=== PATIENT | female | born 1965 | race Caucasian/White ===

== ENCOUNTER 2016-12-21 01:38 | Emergency (ER) | payer OTHER ==
[~2016-12-21] VITALS: Ht 167.6 cm; Wt 78.9 kg
[~2016-12-21 01:38] MED LIST: AMLODIPINE5 M1 PO; COLACE250 MG PO; COZAAR50 MG PO; FERROUS SULFAT325 MG PO; HYDROCHLOROTH12.5 MG PO; ORETIC25 MG PO; OYSTER SHELL CA1 T20 PO
[2016-12-21 01:55] VITALS: BP 160/94
--- NOTE | 2016-12-21 02:28 | NUR ---
TO ER BED 4
--- NOTE | 2016-12-21 02:30 | NUR ---
PATIENT PRESENTS TO ED WITH SORE THROAT AND NECK X 3 DAYS . PT DENIES N/V/D; SKIN IS PINK/WARM/DRY; AAOX4 WITH EVEN AND STEADY GAIT; LUNGS CLEAR BL; HR EVEN AND REGULAR; PT DENIES ANY FEVER, CP OR COUGH AT THIS TIME; PATIENT STATES PAIN OF 5/10 AT THIS TIME; VSS; PATIENT POSITIONED FOR COMFORT; HOB ELEVATED; BEDRAILS UP X2; BED DOWN. ER MD MADE AWARE OF PT STATUS.
[2016-12-21] MEDS ORDERED: KETOROLAC 60 MG/2 ML VIAL IM ONE (03:15)
--- NOTE | 2016-12-21 03:50 | NUR ---
Patient discharged with v/s stable. Written and verbal after care instructions given and explained. Patient alert, oriented and verbalized understanding of instructions. Ambulatory with steady gait. All questions addressed prior to discharge. ID band removed. Patient advised to follow up with PMD. Rx of ZITHROMYCIN AND PROMETHAZINE given. Patient educated on indication of medication including possible reaction and side effects. Opportunity to ask questions provided and answered.
[2016-12-21 03:51] VITALS: BP 166/85
== END 2016-12-21 03:51 | disposition home or self-care (01) ==
LOC: MED 01:38
DX: J02.8 Acute pharyngitis due to other specified organisms (principal); B96.89 Other specified bacterial agents as the cause of diseases classified elsewhere; E11.9 Type 2 diabetes mellitus without complications; I10 Essential (primary) hypertension
CPT/HCPCS: 72040; 73030; 82948; 93005; 96372; 99284; J1885

== ENCOUNTER 2016-12-22 11:17 | Emergency (ER) | payer OTHER ==
[~2016-12-22] VITALS: Ht 160 cm; Wt 76.2 kg
[2016-12-22 11:43] VITALS: BP 151/88
--- NOTE | 2016-12-22 12:16 | NUR ---
PREET TAKENT TO BED 3 AT THIS TIME.
--- NOTE | 2016-12-22 12:18 | NUR ---
51F BIB FAMILY C/O NUMBNESS TO RT SHOULDER, RADIATES TO RT ARM AND RT SIDE OF BODY X 1 WEEK; PT STATES WAS IN [facility] ER LAST NIGHT AND TOLD TO COME BACK FOR RECHECK FOR PAIN TO RT SHOULDER; PT DENIES PAIN AT THIS TIME, BUT STATES FEELS "NUMB" ON RT SIDE; RT RADIAL PULSE PALPABLE, RT CAP REFILL < 2 SECONDS, NO LOSS OF SENSATION OR ROM TO RT UPPER/LOWER EXTREMITIES AT THIS TIME; PT A&OX4, PERRLA, BL LUNG SOUNDS CLEAR, RR EVEN/UNLABORED, SKIN IS WARM/DRY/INTACT AT THIS TIME; PT NOTED WITH HEALED SCAR TO LEFT THIGH FROM SURGERY; DENIES N/V/D AT THIS TIME; PT RESTING IN BED W/ HOB ELEVATED AND IN LOWEST POSITION; POSITIONED FOR COMFORT; ER MD MADE AWARE OF STATUS. WILL CONTINUE TO MONITOR.
--- NOTE | 2016-12-22 12:18 | NUR ---
PT REFUSES SUPPLEMENTAL O2 ORDERED; STATES BREATHING FINE; DENIES PAIN OR ACUTE DISTRESS AT THIS TIME; BL LUNG SOUNDS CLEAR, RR EVEN/UNLABORED, O2 SAT 100 % ON ROOM AIR AT THIS TIME.
--- NOTE | 2016-12-22 13:40 | NUR ---
Patient appears to be resting comfortably in bed. Respirations even and unlabored. DENIES ANY ACUTE DISTRESS AT THIS TIME; WILL CONTINUE TO MONITOR.
[2016-12-22] MEDS ORDERED: ASPIRIN 325 MG TAB PO ONE (13:55)
--- NOTE | 2016-12-22 13:58 | NUR ---
REPORT GIVEN TO NOE, MEDICAL STUDENT AT [facility].
[2016-12-22 14:08] VITALS: BP 120/88
--- NOTE | 2016-12-22 14:08 | NUR ---
Patient to be transferred to [facility]. Is being transferred due to EQUIPMENT OR SERVICES NOT AVAILABLE AT THIS FACILITY. Receiving facility has accepting physician and available space. ER physician has signed transfer form. Patient or responsible green party has agreed to transfer and signed form. Patient belongings inventoried and will be sent with patient. Copy of nursing notes, lab reports, EKG, Physicians Orders and X-rays to be sent with patient. Report called to NOE MEDICAL STUDENT at receiving facility. PT BEING TRANSFERRED TO [facility] VIA [facility] ACCOMPANIED BY [facility] AT THIS TIME.
== END 2016-12-22 14:08 | disposition short-term general hospital (02) ==
LOC: MED 11:17
DX: G45.9 Transient cerebral ischemic attack, unspecified (principal); E11.9 Type 2 diabetes mellitus without complications; I10 Essential (primary) hypertension; E78.00 Pure hypercholesterolemia, unspecified; D64.9 Anemia, unspecified

== ENCOUNTER 2018-11-04 16:38 | Emergency (ER) | payer OTHER ==
[~2018-11-04] VITALS: Ht 157.5 cm; Wt 77.1 kg
[~2018-11-04 16:38] MED LIST changes: +AMLO5TAB8 PO; -AMLODIPINE5 M1 PO; +CALC-106 PO; +COL250 PO; -COLACE250 MG PO; +COZ50 PO; -COZAAR50 MG PO; +FERR325E14 PO; -FERROUS SULFAT325 MG PO; +HYDR12.5 PO; -HYDROCHLOROTH12.5 MG PO; -ORETIC25 MG PO; -OYSTER SHELL CA1 T20 PO
[2018-11-04 16:49] VITALS: BP 126/66
--- NOTE | 2018-11-04 16:53 | NUR ---
PATIENT TRIAGED AND AMBULATED TO ER LOBBY, URINE CUP GIVEN TO PATIENT
--- NOTE | 2018-11-04 17:12 | NUR ---
PT AMBULATED TO BED 10.
--- NOTE | 2018-11-04 17:15 | NUR ---
PT C/O R FACIAL NUMBNESS AND R TEMPORAL REGION HEADACHE 5/10 THROBBING X 1 WEEK AND INSOMNIA X 1 WEEK. SMILES SYMMETRICAL, NO FACIAL DROOP NOTED, NO MOTOR DEFICITS ON BILAT UPPER/LOWER EXTREMITIES NOTED. DENIES CP/SOB/NVD. . DENIES N/V/D; SKIN IS PINK/WARM/DRY; AAOX4 WITH EVEN AND STEADY GAIT; LUNGS CLEAR BL; HR EVEN AND REGULAR; PT DENIES ANY FEVER, CP, SOB, OR COUGH AT THIS TIME; PATIENT STATES PAIN OF 5/10 AT THIS TIME; VSS; PATIENT POSITIONED FOR COMFORT; HOB ELEVATED; BEDRAILS UP X2; BED DOWN. ER MD MADE AWARE OF PT STATUS.
--- NOTE | 2018-11-04 19:10 | NUR ---
REPORT GIVEN TO WINNIE GRIJALVA
--- NOTE | 2018-11-04 21:00 | NUR ---
PT REFUSED CT. DR PITT NOTIFIED.
[2018-11-04 21:32] LABS: BASOPHILS % (AUTO) 0.4 % (0.0-2.0); EOSINOPHILS # (AUTO) 0.2 K/uL (0-0.4); EOSINOPHILS % (AUTO) 2.5 % (0.0-4.0); HEMATOCRIT 37.9 % (36-48); HEMOGLOBIN 11.7 g/dL (12.0-16.0); LYMPHOCYTES # (AUTO) 3.2 K/uL (2.5-16.5); LYMPHOCYTES % (AUTO) 39.7 % (20.5-51.1); MEAN CORPUSCULAR HEMOGLOBIN 23 pg (27-31); MEAN CORPUSCULAR HGB CONC 31 g/dL (33-37); MEAN CORPUSCULAR VOLUME 75.3 fL (80-94); MONOCYTES # (AUTO) 0.7 K/uL (0.8-1.0); MONOCYTES % (AUTO) 8.4 % (1.7-9.3); NEUTROPHILS # (AUTO) 3.9 K/uL (1.8-7.7); PLATELET COUNT (AUTO) 332 K/uL (140-450); RED BLOOD CELL COUNT(AUTO) 5.03 MIL/uL (4.20-5.40)
[2018-11-04 21:42] LABS: APPEARANCE,URINE CLEAR (CLEAR); BILIRUBIN,URINE NEGATIVE (NEGATIVE); BLOOD, URINE NEGATIVE (NEGATIVE); COLOR,URINE ORANGE (YELLOW); LEUKOCYTE ESTERASE ,URINE TRACE (NEGATIVE); NITRITE, URINE NEGATIVE (NEGATIVE); UGLUCOSE 3+ (NEGATIVE)
[2018-11-04 21:50] LABS: RBC,URINE NONE SEEN /HPF (0-5)
[2018-11-04 21:54] LABS: ANION GAP 12.7 (8-16); POTASSIUM 3.7 mmol/L (3.5-5.1)
[2018-11-04 22:00] LABS: ALBUMIN 4.1 g/dL (3.4-5.0); TOTAL BILIRUBIN 0.3 mg/dL (0.0-1.0)
--- NOTE | 2018-11-04 22:08 | NUR ---
PATIENT DISCHARGED BY DR PITT, PATIENT RECEIVED RX FOR MACROBID, PATIENT EDUCATED ON MEDICATIONS AND ALL QUESTIONS ANSWERED. WAS TOLD TO FOLLOW UP WITH PRIMARY PHYSICIAN BECAUSE LABS SHOWED GLUCOSE IN THE URINE. A COPY OF THE LABS WERE GIVEN TO THE PATIENT. VSS.
[2018-11-04 22:15] VITALS: BP 107/87
--- NOTE | 2018-11-07 14:54 | NUR ---
LAB REPORTED URINE E.COLI ESBL; COLLECTED 11/04/2018 TREATED WITH MACROBID---- REVIEWED CHART , AGREED WITH TREATMENT WITH MACROBID
== END 2018-11-04 22:08 | disposition home or self-care (01) ==
LOC: MED 16:38
DX: N39.0 Urinary tract infection, site not specified (principal); E11.9 Type 2 diabetes mellitus without complications; I10 Essential (primary) hypertension; Z79.899 Other long term (current) drug therapy
CPT/HCPCS: 36415; 80053; 81001; 81025; 85025; 87086; 87186; 99283

== ENCOUNTER 2019-06-09 12:11 | Emergency (ER) | payer OTHER ==
[~2019-06-09] VITALS: Ht 154.9 cm; Wt 69.4 kg
[~2019-06-09 12:11] MED LIST changes: -COZ50 PO; +LOSA50TA57 PO
[2019-06-09 12:17] VITALS: BP 168/77
--- NOTE | 2019-06-09 12:44 | NUR ---
AMBULATED TO ER BED 7
--- NOTE | 2019-06-09 13:09 | NUR ---
53/F TO ED WITH C/O GENREALIED ABD PAIN X 2 WEEKS WITH N/V. ABD IS SOFT NON TENDER, BOWEL SOUNDS PRESENT X4. NO DISTENTION NOTED. IN BED FOR MD GARCIA. NO DISTRESS NOTED.
[2019-06-09] MEDS ORDERED: NACL 0.9% 1,000 ML IV SCH (13:41)
[2019-06-09] MEDS ORDERED: ONDANSETRON 4 MG/2 ML VIAL IVP ONE (13:45)
[2019-06-09] MEDS ORDERED: METOCLOPRAMIDE 10 MG/2 ML INJ VIAL IVP ONE (13:45)
[2019-06-09] MEDS ORDERED: FAMOTIDINE 20 MG/2 ML VIAL IVP ONE (13:45)
--- NOTE | 2019-06-09 13:57 | NUR ---
IV INSERTED TO LEFT AC 20GA WITH GOOD BLOOD RETURN, LAB COLLECTED AND SENT TO LAB, IV BOLUS STARTED.
[2019-06-09 14:29] LABS: BASOPHILS % (AUTO) 0.3 % (0.0-2.0); EOSINOPHILS % (AUTO) 0.4 % (0.0-4.0); HEMATOCRIT 35.5 % (36-48); HEMOGLOBIN 11.1 g/dL (12.0-16.0); LYMPHOCYTES # (AUTO) 1.4 K/uL (2.5-16.5); LYMPHOCYTES % (AUTO) 23.3 % (20.5-51.1); MEAN CORPUSCULAR HEMOGLOBIN 24 pg (27-31); MEAN CORPUSCULAR HGB CONC 31 g/dL (33-37); MEAN CORPUSCULAR VOLUME 77.4 fL (80-94); MONOCYTES # (AUTO) 0.4 K/uL (0.8-1.0); MONOCYTES % (AUTO) 7.1 % (1.7-9.3); NEUTROPHILS # (AUTO) 4.2 K/uL (1.8-7.7); NEUTROPHILS % (AUTO) 68.9 % (42.2-75.2); PLATELET COUNT (AUTO) 235 K/uL (140-450); RED BLOOD CELL COUNT(AUTO) 4.59 MIL/uL (4.20-5.40); RED CELL DISTRIBUTION WIDTH 12.7 % (11.6-13.7); WHITE BLOOD COUNT (AUTO) 6.1 K/uL (4.8-10.8)
[2019-06-09 14:35] LABS: ANION GAP 15.1 (8-16); CARBON DIOXIDE 26.2 mmol/L (21-32); CHLORIDE 103 mmol/L (98-107); CREATININE 0.8 mg/dL (0.6-1.3); GFR ARICAN-AMERICAN 97 mL/min (>90); GLUCOSE 332 mg/dL (74-106); POTASSIUM 4.3 mmol/L (3.5-5.1); SODIUM SERUM 140 mmol/L (136-145); UREA NITROGEN, BLOOD 16 mg/dL (7-18)
[2019-06-09 14:43] LABS: AMYLASE 84 U/L (25-115); ASPARTATE AMINOTRANSFERASE 27 U/L (15-37); LIPASE 208 U/L (73-393); MAGNESIUM 1.2 mg/dL (1.8-2.4); TOTAL BILIRUBIN 0.2 mg/dL (0.0-1.0)
[2019-06-09 14:44] LABS: APPEARANCE,URINE CLEAR (CLEAR); BILIRUBIN,URINE NEGATIVE (NEGATIVE); BLOOD, URINE NEGATIVE (NEGATIVE); COLOR,URINE YELLOW (YELLOW); LEUKOCYTE ESTERASE ,URINE TRACE (NEGATIVE); NITRITE, URINE NEGATIVE (NEGATIVE); UGLUCOSE 3+ (NEGATIVE)
[2019-06-09 14:46] LABS: ACETONE, SERUM NEGATIVE (NEGATIVE)
--- NOTE | 2019-06-09 15:00 | NUR ---
PT IS ASLEEP IN BED, NO S/S OF DISTRESS, VSS, DENIES PAIN. Addendum: 06/09/19 at 1637 by MNURTX BOLUS COMPLETED, PT TOLERATED WELL.
[2019-06-09 15:33] LABS: RBC,URINE NONE SEEN /HPF (0-5); WBC,URINE 0-5 /HPF (0-5)
[2019-06-09] MEDS ORDERED: INSULIN REGULAR, HUMAN 100 UNIT/ML VIAL SUBQ ONE (15:45)
[2019-06-09 16:29] VITALS: BP 142/72
--- NOTE | 2019-06-09 16:29 | NUR ---
Patient discharged with v/s stable. Written and verbal after care instructions given and explained. Rx of REGLAN given. Patient educated on indication of medication including possible reaction and side effects. All questions addressed prior to discharge. ID band removed. IV SITE REMOVED, Patient advised to follow up with PMD.
== END 2019-06-09 16:29 | disposition home or self-care (01) ==
LOC: MED 12:11
DX: R11.2 Nausea with vomiting, unspecified (principal); E11.65 Type 2 diabetes mellitus with hyperglycemia; E11.43 Type 2 diabetes mellitus with diabetic autonomic (poly)neuropathy; K31.84 Gastroparesis; I10 Essential (primary) hypertension; D64.9 Anemia, unspecified; Z79.899 Other long term (current) drug therapy
CPT/HCPCS: 36415; 36600; 74176; 80053; 81001; 82009; 82150; 82803; 82948; 83690; 83735; 85025; 96361; 96372; 96374; 96375; 99284; J1815; J2405; J2765; J3490; J7030

== ENCOUNTER 2019-06-26 11:52 | Emergency (ER) | payer OTHER ==
[~2019-06-26] VITALS: Ht 157.5 cm; Wt 67.6 kg
--- NOTE | 2019-06-26 11:52 | NUR ---
Patient BIBA BLS, transferred to bed 4. RN evaluating patient at bedside.
[2019-06-26 11:54] VITALS: BP 164/74
--- NOTE | 2019-06-26 12:13 | NUR ---
Respiratory therapist at bedside for ABG.
--- NOTE | 2019-06-26 12:20 | NUR ---
PT BIBA WITH C/O N/V X 15 DAYS. PT DENIES PAIN/ABD PAIN AT THIS TIME. BOWEL SOUNDS ACITVE ALL QUADRANTS. LAST BM 06/26/19. PT DENIES CP, SOB, AND DIARRHEA AT THIS TIME. PT STATED THAT SHE HAD HEART PALPITATIONS X 15 MIN PRIOR TO ARRIVAL BUT SAYS THAT THEY HAVE STOPPED AND DENIES THEM AT THIS TIME. VSS. SKIN IS WARM, PINK, AND DRY. PT SPEAKING CLEARLY AND IS CONVERSING APPROPRIATELY. FAMILY MEMBER AT BEDSIDE. PT POSITIONED FOR COMFORT. BED RAIL UP X 2. ER MD TO SEE PT DENITA
--- NOTE | 2019-06-26 12:27 | NUR ---
Dr. Shi is evaluating the patient at bedside.
[2019-06-26 12:31] LABS: BASOPHILS % (AUTO) 0.1 % (0.0-2.0); HEMATOCRIT 33.8 % (36-48); HEMOGLOBIN 10.8 g/dL (12.0-16.0); LYMPHOCYTES # (AUTO) 1.7 K/uL (2.5-16.5); MEAN CORPUSCULAR HEMOGLOBIN 24 pg (27-31); MEAN CORPUSCULAR HGB CONC 32 g/dL (33-37); MEAN CORPUSCULAR VOLUME 75.7 fL (80-94); MONOCYTES # (AUTO) 0.5 K/uL (0.8-1.0); MONOCYTES % (AUTO) 10.5 % (1.7-9.3); NEUTROPHILS # (AUTO) 2.6 K/uL (1.8-7.7); NEUTROPHILS % (AUTO) 53.4 % (42.2-75.2); PLATELET COUNT (AUTO) 200 K/uL (140-450); RED BLOOD CELL COUNT(AUTO) 4.46 MIL/uL (4.20-5.40); RED CELL DISTRIBUTION WIDTH 12.5 % (11.6-13.7); WHITE BLOOD COUNT (AUTO) 4.9 K/uL (4.8-10.8)
[2019-06-26 12:43] LABS: APPEARANCE,URINE CLEAR (CLEAR); BILIRUBIN,URINE NEGATIVE (NEGATIVE); BLOOD, URINE NEGATIVE (NEGATIVE); COLOR,URINE YELLOW (YELLOW); LEUKOCYTE ESTERASE ,URINE NEGATIVE (NEGATIVE); NITRITE, URINE NEGATIVE (NEGATIVE); UGLUCOSE 1+ (NEGATIVE)
[2019-06-26 12:51] LABS: ALBUMIN 3.3 g/dL (3.4-5.0); AMYLASE 65 U/L (25-115); ANION GAP 14.7 (8-16); ASPARTATE AMINOTRANSFERASE 33 U/L (15-37); CARBON DIOXIDE 26.4 mmol/L (21-32); CHLORIDE 104 mmol/L (98-107); CREATININE 0.7 mg/dL (0.6-1.3); GFR ARICAN-AMERICAN 113 mL/min (>90); GLUCOSE 156 mg/dL (74-106); LIPASE 174 U/L (73-393); MAGNESIUM 1.3 mg/dL (1.8-2.4); POTASSIUM 4.1 mmol/L (3.5-5.1); SODIUM SERUM 141 mmol/L (136-145); TOTAL BILIRUBIN 0.3 mg/dL (0.0-1.0); UREA NITROGEN, BLOOD 18 mg/dL (7-18)
[2019-06-26 12:53] LABS: ACETONE, SERUM NEGATIVE (NEGATIVE)
[2019-06-26] MEDS: ONDANSETRON 4 MG/2 ML VIAL IVP ONE (12:54)
[2019-06-26] MEDS: NACL 0.9% 1,000 ML IV SCH (12:54)
[2019-06-26] MEDS: KETOROLAC 30 MG/ML VIAL IVP ONE (12:55)
[2019-06-26] MEDS: METOCLOPRAMIDE 10 MG/2 ML INJ VIAL IVP ONE (12:55)
[2019-06-26] MEDS: FAMOTIDINE 20 MG/2 ML VIAL IVP ONE (12:56)
[2019-06-26] MEDS: PROMETHAZINE 25 MG/ML VIAL IM ONE (12:56)
[2019-06-26 13:10] LABS: RBC,URINE 0 /HPF (0-5)
[2019-06-26 13:11] LABS: WBC,URINE 0-5 /HPF (0-5)
[2019-06-26] MEDS: hydrOXYzine HCL 25 MG TAB PO ONE (13:24)
[2019-06-26] MEDS: diphenhydrAMINE 50 MG/ML VIAL IVP ONE (13:25)
[2019-06-26] MEDS: MAG SULF 2000 MG/WATER PREMIX 50 ML IV ONE (13:32)
[2019-06-26] MEDS: NACL 0.9% 1,000 ML IV ONE (13:32)
[2019-06-26] MEDS: methylPREDNISolone SS 125 MG/2 ML VIAL IVP ONE (13:42)
--- NOTE | 2019-06-26 14:27 | NUR ---
PT IS SLEEPING. ABLE TO VISUALIZE RISE AND FALL OF THE CHEST. WILL CONTINUE TO MONITOR.
--- NOTE | 2019-06-26 15:58 | NUR ---
Patient discharged with v/s stable. Written and verbal after care instructions given and explained. Patient alert, oriented and verbalized understanding of instructions. Ambulatory with steady gait. All questions addressed prior to discharge. ID band removed. Patient advised to follow up with PMD. Rx of PERIACTIN, REGLAN, AND PRILOSEC given. Patient educated on indication of medication including possible reaction and side effects. Opportunity to ask questions provided and answered.
[2019-06-26 15:59] VITALS: BP 149/70
== END 2019-06-26 15:58 | disposition home or self-care (01) ==
LOC: MED 11:52
DX: E11.43 Type 2 diabetes mellitus with diabetic autonomic (poly)neuropathy (principal); K31.84 Gastroparesis; R11.10 Vomiting, unspecified; E83.42 Hypomagnesemia; I10 Essential (primary) hypertension; D64.9 Anemia, unspecified; Z79.899 Other long term (current) drug therapy
CPT/HCPCS: 36415; 80053; 81001; 82009; 82150; 83036; 83690; 83735; 85025; 87804; 96361; 96365; 96366; 96372; 96375; 99283; J1885; J2405; J2550; J2765; J2930; J3475; J3490; J7030; J1200